=== PATIENT | male | born 1950 | race Caucasian/White ===

== ENCOUNTER 2019-03-29 09:40 | Inpatient (IN) ==
[2019-03-22 12:07] LABS: Appearance,Urine CLEAR; Bilirubin,Urine NEG (NEG); Color,Urine YELLOW; Culture Indicated,Urine NO; Glucose,Urine (UA) NEGATIVE (NEG); Ketones,Urine NEG (NEG); Leukocyte Esterase,Urine NEG /uL (NEG); Nitrate,Urine NEG (NEG); Protein,Urine NEG (NEG); Specific Gravity,Urine 1.023 (1.000-1.035); Urine Blood NEG mg/dL (<0.03); Urobilinogen,Urine NEG (NEG)
[2019-03-22 14:01] LABS: Blood Urea Nitrogen 14 mg/dl (8-23); Calcium 9.7 mg/dl (8.6-10.4); Carbon Dioxide 28 mmol/L (22-30); Chloride 102 mmol/L (96-108); Glomerular Filtration Rate 68; Glucose 94 mg/dL (70-105); Potassium 4.2 mmol/L (3.3-5.1); Sodium 141 mmol/L (133-145)
[2019-03-22 14:05] LABS: Basophils # (Auto) 0 K/mcL (0.0-0.3); Basophils % (Auto) 0.9 % (0.0-2.0); Eosinophils # (Auto) 0.1 K/mcL (0.0-0.7); Eosinophils % (Auto) 1.2 % (0.0-7.0); Granulocytes % (Auto) 70.7 % (38.0-78.0); Hematocrit 43.4 % (41.0-55.0); Hemoglobin 14.3 g/dL (13.5-16.5); Lymphocytes % (Auto) 19.9 % (15.5-49.0); Mean Cell Volume 93.3 fL (80.0-100.0); Mean Platelet Volume 7.9 fL (7.4-10.4); Monocytes # (Auto) 0.4 K/mcL (0.1-0.9); Monocytes % (Auto) 7.3 % (1.0-12.0); Platelet Count 213 K/mcL (140-440); RBC 4.65 M/mcL (4.50-5.90); Red Cell Distribution Width 13.5 % (11.5-14.5); WBC 5.3 K/mcL (4.5-11.0)
[2019-03-22 14:10] LABS: INR 0.9 (0.9-1.1); Prothrombin Time 12.6 sec (11.9-14.5)
[~2019-03-29 09:40] MED LIST: 0.9 % SODIUM CHLORIDE 9 ML, KETOROLAC 30 MG, ROPIVACAINE HCL/PF 49.5 ML, EPINEPHrine 0.... IJ SCH; CELECOXIB 200 MG CAPSULE PO SCH; PREGABALIN 75 MG CAPSULE PO SCH; ceFAZolin 2 GM in DEXTROSE 5% IN WATER 50 ML IV SCH; oxyCODONE 10 MG TAB.ER.12H PO SCH
[2019-03-29] MEDS ORDERED: SCOPOLAMINE 1 PATCH PATCH TOPICAL PRN (11:00)
[2019-03-29] MEDS ORDERED: IPRATROPIUM/ALBUTEROL 3 ML AMPUL.NEB NEB PRN ×2 (11:00→15:57)
[2019-03-29] MEDS ORDERED: PROPOFOL 200 MG/20 ML VIAL IV ONE (13:55)
[2019-03-29] MEDS ORDERED: DEXAMETHASONE 10 MG/ML VIAL IV ONE (13:55)
[2019-03-29] MEDS ORDERED: fentaNYL 100 MCG/2 ML VIAL IV ONE (13:55)
[2019-03-29] MEDS ORDERED: ROPIVACAINE HCL/PF 20 ML VIAL IJ ONE (13:55)
[2019-03-29] MEDS ORDERED: KETOROLAC 30 MG/ML VIAL IV ONE (13:55)
[2019-03-29] MEDS ORDERED: MIDAZOLAM 2 MG/2 ML VIAL IV ONE (13:55)
[2019-03-29] MEDS ORDERED: KETAMINE 100 MG/ML ML IV ONE (13:55)
[2019-03-29] MEDS ORDERED: ePHEDrine 50 MG/ML AMPUL IV ONE (13:55)
[2019-03-29] MEDS ORDERED: ONDANSETRON 4 MG/2 ML VIAL IV ONE (13:55)
[2019-03-29] MEDS ORDERED: LIDOCAINE HCL/PF 100 MG/5 ML SYRINGE IV ONE (13:55)
[2019-03-29] MEDS ORDERED: GENTAMICIN SULFATE 800 MG/20 ML VIAL IR ONE (15:12)
[2019-03-29] MEDS ORDERED: [UNRECOGNIZED DRUG - OTHER] PO PRN (15:39)
[2019-03-29] MEDS ORDERED: HYDROcodone/APAP 10/325MG TABLET PO PRN (15:39)
[2019-03-29] MEDS ORDERED: MAGNESIUM HYDROXIDE 30 ML ORAL.SUSP PO PRN (15:39)
[2019-03-29] MEDS ORDERED: BENZOCAINE/MENTHOL 1 LOZENGE PO PRN (15:39)
[2019-03-29] MEDS ORDERED: TRANEXAMIC ACID 1,000 MG/10 ML VIAL IV ONE (15:39)
[2019-03-29] MEDS ORDERED: POLYETHYLENE GLYCOL 3350 17 GM PACKET PO PRN (15:39)
[2019-03-29] MEDS ORDERED: FLEETS ADULT ENEMA PR PRN (15:39)
[2019-03-29] MEDS ORDERED: BISACODYL 10 MG SUPP.RECT PR PRN (15:39)
[2019-03-29] MEDS ORDERED: ONDANSETRON 4 MG/2 ML VIAL IV PRN ×2 (15:39→15:57)
[2019-03-29] MEDS ORDERED: ONDANSETRON 4 MG ODT TABLET SL PRN (15:39)
[2019-03-29] MEDS ORDERED: METHOCARBAMOL 750 MG TABLET PO PRN (15:39)
--- NOTE | 2019-03-29 15:39 | Brief Operative Note ---
Date of procedure: 03/29/19 Pre-op diagnosis: right knee osteoarthritis Post-op diagnosis: same Procedure: right total knee arthroplasty Grafts/Implants: Yes Anesthesia: spinal Complications: none Surgeon: See Valdez [employer] Bill Complaints Investigator: Juliette Mak Estimated blood loss (cc): 150 Tourniquet Time (Minutes): 52 Specimens Removed/Pathology: none sent Condition: stable Disposition: PACU
--- NOTE | 2019-03-29 15:56 | Operative Note ---
DATE OF OPERATION: 03/29/2019 PREOPERATIVE DIAGNOSIS: Degenerative joint disease, right knee. POSTOPERATIVE DIAGNOSIS: Degenerative joint disease, right knee. PROCEDURE: Right total knee arthroplasty. SURGEON: Malcolm Valdez M.D. METER REPAIRER HELPER SURGEON: Juliette Mak PA-C. The PA's assistance was required for the safe and efficient completion of the entire case. This provider's expertise and technical skill were required throughout the case. The PA assisted with preoperative coordination, intraoperative retraction, wound closure, dressing and splint application, as well as postoperative documentation and care coordination. ANESTHESIA: Spinal with LMA assist. ESTIMATED BLOOD LOSS: 150 mL. COMPLICATIONS: None noted. SPECIMENS REMOVED: None. DRAINS: None. TOURNIQUET TIME: 52 minutes at 300 mmHg. IMPLANTS: DePuy CMW2 bone cement 20 grams x5; DePuy Attune femoral posterior stabilized size 8 right, cemented; DePuy Attune tibial insert fixed bearing posterior stabilized size 8, 6 mm AOX; DePuy Attune tibial base fixed bearing size 7, cemented; DePuy Attune patella medialized dome 41 mm, cemented AOX. INDICATIONS: The patient has had a long-standing history of worsening pain in the knee that has failed conservative treatment. Radiographs have confirmed advanced degenerative joint disease. After a long discussion about treatment options, the patient elected to proceed with a knee arthroplasty. The risks and benefits were discussed with the patient in detail including, but not limited to, the risks of anesthesia, problems with the heart or lungs related to anesthesia, infection, compromise or injury to the nerves and blood vessels, deep venous thrombosis, pulmonary embolism, pneumonia, continued pain after surgery, worsening pain or symptoms after surgery, swelling, loss of motion, instability, leg length discrepancy, and need for repeat surgery. DESCRIPTION OF PROCEDURE: The patient was seen in the pre-anesthesia waiting room where all questions were answered and the correct side and site were identified and marked. The patient was transferred to the operating room and administered the anesthetic and given pre-operative antibiotics. A time-out was then called. The extremity was prepped and draped, exsanguinated, and the tourniquet was inflated to 300 mmHg. A midline skin incision was then made with a standard medial parapatellar arthrotomy. Debridement of the menisci, ACL, and PCL was performed followed by balancing releases in the medial lateral plane. We then established intramedullary access to both the femur and tibia in a standard fashion. The femoral guide denny was initially placed with the distal femoral guide, pinned into place, and the distal femoral cut was performed and checked with a flat plate. We then turned our attention to the tibia. The intramedullary guide was placed with the proximal tibial cutting block. The block was appropriately positioned off the affected side, varus and valgus was checked with the extra-medullary guide, and the block was pinned into place. The proximal tibial cut was performed and the tibia was prepared for the tibial implant with appropriate rotation. The tibia, femur, and posterior compartment were debrided of osteophytes, loose bodies, and meniscal fragments We then used the gap balancing technique to balance extension with the first two cuts and good balancing was obtained with a 10 millimeter gap block. We turned our attention back to the femur and used the referencing block and implant to size appropriately. Using the gap balancing technique for the flexion space we set our rotation of the femur off the tibial cut. Anesthesia gave the patient 1 gram of Tranexamic Acid via an intravenous route. We placed the 4 in 1 cutting block and made anterior, posterior, and chamfer cuts. Box plasty cuts were then made in a standard fashion for the posterior stabilized prosthesis. We then completed osteophyte release and posterior capsule release from the posterior compartment. Trials were placed and we chose the polyethylene insert thickness that provided the best stability in all planes. With the trials in place, we did a measured resection for a resurfacing patella. We sized the patella and placed the patella trial and performed a lateral facetectomy with the saw and rongeur. Good tracking was obtained. We removed all trials, irrigated and dried all cut surfaces. We cemented the components into place including tibia, femur and patella. We placed a trial liner and held the knee in full extension with the patella compressed while the cement cured. We then removed all excess cement and placed the final polyethylene tibiofemoral component. Irrigation with 3 liters of antibiotic saline was then performed using jet-lavage. We let the tourniquet down and coagulated bleeding vessels. We injected a 100 cubic centimeter volume including Ropivacaine 49.25 cubic centimeters at 5 milligrams per cubic centimeter, Ketorolac 30 milligrams, and Epinephrine 0.5 milligrams into 100 cubic centimeters volume of normal saline. We closed the retinaculum with #2 Stratafix and 0 Vicryl. We closed the subcutaneous tissue and skin in layers out to Dermabond on the skin. A sterile pressure dressing was applied. All needle and sponge counts were correct. The patient was transferred to the recovery room in stable condition. DAMARIS:jaylin Job ID: [id number] Doc ID: [id number] Malcolm Valdez MD
[2019-03-29] MEDS ORDERED: fentaNYL 100 MCG/2 ML VIAL IV PRN (15:57)
[2019-03-29] MEDS ORDERED: METHOCARBAMOL 1,000 MG/10 ML VIAL IV PRN (15:57)
[2019-03-29] MEDS ORDERED: MEPERIDINE 25 MG/ML SYRINGE IV PRN (15:57)
[2019-03-29] MEDS ORDERED: ACETAMINOPHEN 1,000 MG/100 ML BOTTLE IV ONE (15:57)
[2019-03-29] MEDS ORDERED: LACTATED RINGERS 1,000 ML IV SCH (16:00)
--- NOTE | 2019-03-29 16:41 | XRay Report ---
CLINICAL INFORMATION: Postsurgical follow-up TECHNIQUE: AP and crosstable lateral right knee COMPARISON: None FINDINGS: Status post right total knee arthroplasty. Femoral and tibial components are in anatomic positions. There is a focal density adjacent to the lateral aspect of the femoral prosthetic component. This may be methylmethacrylate. Oblique views may be helpful for better evaluation. There is postsurgical soft tissue and intra-articular gas. IMPRESSION: 1. Status post right total knee arthroplasty 2. Oblique views may be helpful for further evaluation as above Interpreted and Authenticated by: See Last 03/29/19
[2019-03-29] MEDS: 0.9 % SODIUM CHLORIDE 1,000 ML IV SCH (17:10)
[2019-03-29] MEDS ORDERED: oxyCODONE/APAP 5/325MG TABLET PO PRN (17:23)
[2019-03-29] MEDS: KETOROLAC 30 MG/ML VIAL IV SCH ×2 (18:08→23:25)
[2019-03-29] MEDS ORDERED: SENNOSIDES 1 TABLET PO SCH (21:00)
[2019-03-29] MEDS: ceFAZolin 1 GM VIAL IV SCH (21:23)
[2019-03-29] MEDS: DOCUSATE SODIUM 100 MG CAPSULE PO SCH (21:23)
[2019-03-29] MEDS: ASPIRIN 81 MG TAB.CHEW PO SCH (21:24)
[2019-03-29] MEDS: 0.9 % SODIUM CHLORIDE 10 ML SYRINGE IV SCH (21:25)
[2019-03-30] MEDS: 0.9 % SODIUM CHLORIDE 1,000 ML IV SCH ×2 (01:20→08:42)
[2019-03-30] MEDS: ceFAZolin 1 GM VIAL IV SCH (05:34)
[2019-03-30] MEDS: KETOROLAC 30 MG/ML VIAL IV SCH ×2 (05:34→11:12)
[2019-03-30 05:39] LABS: Hematocrit 34.6 % (41.0-55.0); Hemoglobin 11.7 g/dL (13.5-16.5)
[2019-03-30] MEDS: 0.9 % SODIUM CHLORIDE 10 ML SYRINGE IV SCH (05:42)
--- NOTE | 2019-03-30 07:46 | Orthopedic Progress Note ---
Subjective Patient information: Note initiated : 03/30/19 at 7:45 am Service Date, if different from initiated Date: [] Patient: Mauri Marinelli 68 y/o M admitted on 03/29/19 for Right Total Knee Arthroplasty. Chief Complaint: [] Interval history: doing well. minimal pain Objective Vital signs: Vital Signs Temp Pulse Resp BP BP Pulse Ox 03/30/19 04:15 98.6 F 70 16 127/75 95 03/29/19 23:36 98.7 F 74 12 106/66 94 03/29/19 19:55 97.5 F 75 20 100/62 95 03/29/19 18:50 76 104/66 97 03/29/19 18:35 76 94/56 98 03/29/19 18:20 78 104/65 98 03/29/19 18:05 80 113/54 98 03/29/19 17:35 72 138/73 99 03/29/19 17:20 68 153/74 100 03/29/19 17:05 68 142/77 99 03/29/19 16:50 69 146/79 98 03/29/19 16:36 97.3 F 67 15 155/87 100 03/29/19 16:20 97.4 F 75 19 146/69 99 03/29/19 16:05 97.2 F 77 18 135/60 100 03/29/19 16:00 97.6 F 78 16 152/69 100 03/29/19 15:55 80 12 149/64 100 03/29/19 15:50 83 12 141/67 100 03/29/19 15:47 97.5 F 81 13 141/67 100 03/29/19 12:00 98.9 F 66 18 131/78 99 Intake and Output 03/29/19 03/30/19 03/30/19 21:59 05:59 13:59 Intake Total 1989 1200 Output Total 720 350 Balance 1270 850 Intake: IV 100 1000 Sodium Chloride 0.9% 1,000 ml @ 1000 125 mls/hr IV .Q8H [facility] Rx#: [id number] Oral 240 200 IV - Manual Only 1650 Output: Urine Catheter Amount 700 Void Amount 350 Estimated Blood Loss 20 Other: Meal Dinner Percent of Meal Consumed 100% Feeding Ability Independent Urine Appearance Clear Straight Clear Urine Color Dark Yellow Straight Pale Weight 196 lb Intake & Output: Intake & Output 03/29/19 03/30/19 03/30/19 21:59 05:59 13:59 Intake Total 1989 1200 Output Total 720 350 Balance 1270 850 Weight 196 lb Intake: IV 100 1000 Sodium Chloride 0.9% 1,000 ml @ 1000 125 mls/hr IV .Q8H [facility] Rx#: [id number] Oral 240 200 IV - Manual Only 1650 Output: Urine Catheter Amount 700 Void Amount 350 Estimated Blood Loss 20 Other: Meal Dinner Percent of Meal Consumed 100% Feeding Ability Independent Urine Appearance Clear Straight Clear Urine Color Dark Yellow Straight Pale Incision: Yes healing Incision clean and dry: Yes Dressing: Yes clean, Yes dry, Yes intact Weight bearing status: full Neurological exam IM: Yes alert, Yes oriented X3, Yes neurovascular intact Extremities exam IM: No calf tenderness, Yes Foot pink and warm, Yes neurovascular intact - Labs CBC & BMP: 03/30/19 04:46 03/22/19 09:38 Labs: Orthopedic Labs 03/22/19 09:38 PT 12.6 INR 0.9 03/30/19 03/22/19 04:46 09:38 Hgb 11.7 L 14.3 Hct 34.6 L 43.4 Assessment and Plan (1) Knee osteoarthritis pod 1 s/p tka wbat pain control dvt prophylaxis d/c planning Status: Acute
--- NOTE | 2019-03-30 07:47 | Discharge Summary ---
Ortho Discharge - TKA - Patient Instructions Diet: Regular Diet Activity: activity as tolerated, ambulate with assistive device, weight bearing as tolerated Total Knee Protocol: For Total Knee: Start ROM EJ with stationary bike or rocking chair. Work on gaining full extension of knee. Posterior dislocation precautions provided. Hip abductor strengthening and gait training instructions provided. Apply Cryocuff as instructed. Dressing Care: May shower in 2 days Patient Education: Total Knee Replacement (DC) - Problem Maintenance (1) Knee osteoarthritis Status: Acute - Follow Up Plan Follow Up Appointments: Juliette Mak PA-C [Physician Office Communication Professor] - 04/13/19 9:40 am Disposition: Home, Self-Care Prognosis: Good Rehab Potential: Good I certify that the patient requires SNF services: No Overall status at discharge: patient is progressing back to baseline
[2019-03-30] MEDS: DOCUSATE SODIUM 100 MG CAPSULE PO SCH (08:41)
[2019-03-30] MEDS: ASPIRIN 81 MG TAB.CHEW PO SCH (08:41)
== END 2019-03-30 12:45 | disposition home or self-care (01) | DRG 470 ==
LOC: MEDSUR 10:59
PROVIDERS: ADMIT Orthopaedic Surgery Sports Medicine; ATTEND Orthopaedic Surgery Sports Medicine